=== PATIENT | female | born 1995 | race Asian ===

== ENCOUNTER 2018-02-07 09:33 | Emergency (ER) | payer BC, SELFPAY | END 2018-02-07 10:03 | disposition home or self-care (01) | LOC: M ED 09:33 | DX: S29.012A Strain of muscle and tendon of back wall of thorax, initial encounter (principal); X58.XXXA Exposure to other specified factors, initial encounter; Y92.89 Other specified places as the place of occurrence of the external cause; K21.9 Gastro-esophageal reflux disease without esophagitis | CPT/HCPCS: 99282 ==

== ENCOUNTER 2018-05-12 18:52 | Emergency (ER) | payer BC ==
[~2018-05-12] VITALS: Ht 162.6 cm; Wt 127.2 kg
[~2018-05-12 18:52] MED LIST: CYCL10TA PO; NAPR-50 PO
[2018-05-12] MEDS ORDERED: ALBUTEROL SULFATE 2.5 MG/0.5 ML INH NEB SOLN NEB ONE (20:00)
[2018-05-12] MEDS ORDERED: NAPROXEN 250 MG TAB PO ONE (20:00)
[2018-05-12 20:26] LABS: BASO # 0.1 10^3/uL (0.0-0.2); BASO % 0.5 % (0.0-1.0); EOS # 0.1 10^3/uL (0.0-0.50); EOS % 0.5 % (0.0-3.0); HEMATOCRIT 41.8 % (36.0-47.0); HEMOGLOBIN 14.5 g/dl (12.0-15.5); LYMPH # 1.5 10^3/uL (1.5-6.5); LYMPH % 13.9 % (24.0-44.0); MEAN CORPUSCULAR HGB CONC 34.7 g/dl (32.0-36.5); MEAN CORPUSCULAR VOLUME 89.3 fl (80.0-96.0); MONO # 0.5 10^3/uL (0.0-0.8); MONO % 4.6 % (0.0-5.0); NEUTROPHILS # 8.8 10^3/uL (1.8-7.7); NEUTROPHILS % 80.2 % (36.0-66.0); PLATELET COUNT, AUTOMATED 307 10^3/uL (150-450); RED BLOOD COUNT 4.68 10^6/uL (4.00-5.40); WHITE BLOOD COUNT 10.9 10^3/uL (4.0-10.0)
[2018-05-12 20:46] LABS: HCG, SERUM QUALITATIVE NEGATIVE (NEGATIVE)
[2018-05-12 20:49] LABS: BLOOD UREA NITROGEN 9 MG/DL (7-18); CALCIUM LEVEL 9.2 MG/DL (8.5-10.1); CARBON DIOXIDE LEVEL 27 MEQ/L (21-32); CHLORIDE LEVEL 101 MEQ/L (98-107); CREATININE FOR GFR 0.76 MG/DL (0.55-1.30); GLOMERULAR FILTRATION RATE > 60.0 (>60); GLUCOSE, FASTING 92 MG/DL (70-100); POTASSIUM SERUM 3.9 MEQ/L (3.5-5.1); SODIUM LEVEL 139 MEQ/L (136-145)
[2018-05-12] MEDS ORDERED: NAPR-50 PO (21:15)
[2018-05-12] MEDS ORDERED: PROAAER10 INH (21:15)
--- NOTE | 2018-05-12 21:20 | REP ---
PA and lateral chest: There are no comparisons. The lung pearson are clear. The cardiac size is normal. The eugenio, mediastinum, and skeletal structures are unremarkable. Impression: Negative PA and lateral chest. Electronically Signed by Parveen Meade MD 05/12/2018 09:11 P
[2018-05-12 21:30] VITALS: BP 110/64
== END 2018-05-12 21:32 | disposition home or self-care (01) ==
LOC: M ED 18:52
DX: J06.9 Acute upper respiratory infection, unspecified (principal); M62.830 Muscle spasm of back; R06.02 Shortness of breath; K21.9 Gastro-esophageal reflux disease without esophagitis; Z77.098 Contact with and (suspected) exposure to other hazardous, chiefly nonmedicinal, chemicals